=== PATIENT | male | born 1935 | race Caucasian/White ===

== ENCOUNTER 2018-04-18 14:27 | Outpatient (CLI) | payer MEDICARE ==
--- NOTE | 2018-04-18 15:46 | RAD ---
CHEST 2 VIEWS: HISTORY: Dyspnea. COMPARISON: 11/14/14. FINDINGS: Cardiac silhouette and pulmonary vasculature are unremarkable. Mediastinum is midline with aortic ca lcification. There is no confluent airspace consolidation, pneumothorax, or pleural fluid. Postoper ative changes right shoulder. Degenerative changes thoracic spine. IMPRESSION: Atherosclerosis. No active cardiopulmonary abnormalities are otherwise demonstrated. POS: [facility]
== END 2018-04-18 14:28 | disposition home or self-care (01) ==
LOC: RAD 14:27
PROVIDERS: ATTEND Internal Medicine Critical Care Medicine
DX: I70.90 Unspecified atherosclerosis (principal); R06.00 Dyspnea, unspecified
CPT/HCPCS: 71046